=== PATIENT | female | born 1995 | race Caucasian/White ===

== ENCOUNTER → 2025-01-08 | Outpatient (CLI) | payer OTHER, SELFPAY ==
--- OUTSIDE RECORDS SUMMARY | 2025-01-08 16:30 | XMS RPT_ITS | CCD ---
Author Organization [facility] CliniSyal Care Team Providers Care Director Of Compliance Name Role Phone TAO LOZANOARA L Unavailable Unavailable REFERRED, SELF Unavailable Unavailable LOZANO, CHERIE L Unavailable Unavailable CORONA, STACY Unavailable Unavailable REFERRED, SELF Unavailable Unavailable MARTA, CHERIE L Unavailable Unavailable Karissa Resendiz Attending Unavailable Karissa Resendiz Admitting Unavailable Tourrafy, Carlo Primary Care Unavailabl e Tourlas, Carlo Attending Unavailabl e Tourlas, Carlo Primary Care Unavailabl e Valentino Stanley Admitting Unavailable Valentino Stanley Attending Unavailable Tourlas, Carlo Primary Care Unavailabl e Tourlas, Carlo Unavailable [phone] João Aldrich Unavailable Unavailable Andre, Anne Unavailable Unavailable Hernando Snider Attending Unavailable João Wolf Primary Care Provider JOÃO ALDRICH Primary Care Unavailable TRAM HERRERA Attending Unavailable NONE, NONE Primary Care Unavailable DR STEVE RUSSELL DO Consulting Unavailab kishore RUSSELL DO, DR~[id number] STEVE Castañeda Admitting Unavailable SARAH BETH JACKSON DR~[id number] STEVE Castañeda Attending Unavailable DR STEVE RUSSELL DO Consulting Unavailab le NONE, NONE Consulting Unavailable NONE, NONE Consulting Unavailable STACY PATEL DO Consulting Unavailable AMANDA JACKSON~[id number], AMANDA Saez Admitting Unavailable AMANDA JACKSON~[id number], AMANDA Saez Attending Unavailable KIERRA PERRY~[id number], KIERRA Benitez Prima ry Care Unavailable STACY PATEL DO Consulting Unavailable DESMOND LOZADA APRN Consulting Unavail able DESMOND LOZADA APRN Consulting Unavail able BREONNA FAJARDO DR~[id number] VALENTINO Attending Unavailable NONE, NONE Primary Care Unavailable STACY GUIDRY MD Consulting Unavailable BREONNA FAJARDO DR~[id number] VALENTINO Admitting Unavailable STACY GUIDRY MD Consulting Unavailable NONE, NONE Consulting Unavailable NONE, NONE Consulting Unavailable BREONNA FAJARDO DR~[id number] VALENTINO Consulting Unavailable DR VALENTINO RAVI MD Consulting Unavaila ble BREONNA FAJARDO DR~[id number] VALENTINO Admitting Unavailable BREONNA FAJARDO DR~[id number] VALENTINO Attending Unavailable NONE, NONE Primary Care Unavailable NONE, NONE Consulting Unavailable NONE, NONE Consulting Unavailable BREONNA FAJARDO DR~[id number] VALENTINO Consulting Unavailable DR VALENTINO RAVI MD Consulting Unavaila ble Allergies Allergy Classification Reported Allergen(s) Allergy Type Date of Onset Reaction(s) Facility (1 source) Azithromycin Drug Allergy [facility] Repository Medications Current Medications Medication Drug Class(es) Dates Sig (Normalized) Sig (Original) azithromycin 250 mg oral tablet (1 source) Macrolide Antimicrobial Start: 08-03-2020 End: 08-07-2020 Zithromax Z-Austin 250 mg oral tablet ; 2 tab(s) by mouth at once on day 1, then 1 tablet once a day on days 2-5 Quantity: 6 Refills: 0 Ordered: 03-Aug-2020 Anne Powell Start: 03-Aug-2020 End: 07-Aug-2020 Generic Substitution Allowed Comments: Do not take dairy products, antacids, or iron preparations within one hour of this medication.Finish all this medication unless otherwise directed by prescriber. Comment on above: Do not take dairy pr oducts, antacids, or iron preparations within one hour of this medication.Finish all this medication unless otherwise directed by prescriber. escitalopram 10 mg oral tablet (1 source) Serotonin Reuptake Inhibitor take 1 tablet by mouth once daily escitalopram (Lexapro) 10 mg tablet Take 1 tablet (10 mg) by mouth once daily. 0 Active ketorolac tromethamine 10 mg oral tablet (2 sources) Nonsteroidal Anti-inflammatory Drug, Cyclooxygenase Inhibitor Start: 12-28-2022 End: 01-02-2023 take 1 tablet by mouth every six hours for pain ketorolac (Toradol) 10 mg tablet Indications: Odontalgia , Pain, dental Take 1 tablet (10 mg) by mouth every 6 hours if needed for moderate pain (4 - 6) for up to 5 days. 20 tablet 0 12/28/2022 01/02/2023 Active Start: 12-28-2022 End: 12-28-2022 ketorolac (Toradol) injectio n 15 mg metoprolol tartrate 25 mg oral tablet (1 source) beta-Adrenergic Milana take 1 tablet by mouth twice daily metoprolol tartrate 25 mg oral tablet ; 1 tab(s) orally 2 times a day Quantity: 0 Refills: 0 Ordered: 03-Aug-2020 Emily Luna Generic Substitution Allowed Completed/Discontinued Medications Medication Drug Class(es) Dates Sig (Normalized) Sig (Original) benzocaine 140 mg/ml / butamben 20 mg/ml / tetracaine 20 mg/ml mucosal spray (1 source) Mari Local Anesthetic, Standardized Chemical Allergen Start: 12-28-2022 End: 12-28-2022 butamben-tetracai ne-benzocaine (Cetacaine) spray 1 spray lidocaine hydrochloride 20 mg/ml mucous membrane topical solution (1 source) Antiarrhythmic, Amide Local Anesthetic Start: 12-28-2022 End: 12-28-2022 lidocaine (Xylocaine) 2 % mouth solution 1.25 mL Problems Active Problems Problem Classification Problem Date Documented Date Episodic/Chronic Acute bronchitis (1 source) Acute bronchitis, unspecified; Translations: [Acute bronchitis, unspecified] Onset: 05-14-2022 Episodic Administrative/social admission (3 sources) Encounter for examination for insurance purposes; Translations: [ENCOUNTER EXAM INSURANCE PURPOSES] Onset: 11-29-2024 Episodic Disorders of teeth and jaw (4 sources) Toothache; Translations: [Other specified disorders of teeth and supporting structures] Onset: 12-28-2022 12-28-2022 Episodic Immunizations and screening for infectious disease (1 source) Exposure to communicable disease; Translations: [Contact with or exposure to other viral diseases] 08-03-2020 Episodic Malaise and fatigue (2 sources) Fatigue; Translations: [Other malaise and fatigue] 08-03-2020 Episodic Menstrual disorders (2 sources) Dysmenorrhea, unspecified; Translations: [DYSMENORRHEA UNSPECIFIED] Onset: 12-18-2024 Chronic Other nutritional; endocrine; and metabolic disorders (1 source) Obesity, unspecified; Translations: [OBESITY UNSPECIFIED] Onset: 01-06-2024 Chronic Other upper respiratory disease (2 sources) Pain in throat 08-03-2020 Episodic Comment on above: SORE THROAT Other upper respiratory infections (4 sources) Acute upper respiratory infection; Translations: [Acute upper respiratory infections of unspecified site] 08-03-2020 Episodic Ovarian cyst (1 source) Unspecified ovarian cyst, left side; Translations: [UNSPECIFIED OVARIAN CYST LEFT SIDE] Onset: 12-22-2024 Episodic Unclassified (1 source) Exposure to mononucleosis syndrome 08-03-2020 Past or Other Problems Problem Classification Problem Date Documented Da te Episodic/Chronic Cardiac dysrhythmias (4 sources) Palpitations; Translations: [Tachycardia, unspecified] Onset: 01-02-2024 Episodic Results Test Name Value Interpretation Reference Range Facility THIN PREP with HPV REFLEX C U or SILon 12-10-2024 . . Normal [facility] Comment on above: Result Comment: Perf ormed at: [facility] Performed By: #### T PHRAS #### Performed for [place] [address] . Comment Normal [facility] Comment on above: Result Comment: The HPV DNA reflex criteria were not met with this specimen result therefore, no HPV testing was performed. . Performed at: [facility] Performed By: #### T PHRAS #### Performed for [place] [address] DIAGNOSIS: Comment Normal [facility] Comment on above: Result Comment: NEGA TIVE FOR INTRAEPITHELIAL LESION OR MALIGNANCY. Performed at: [facility] Performed By: #### T PHRAS #### Performed for [place] [address] Note: Comment Normal [facility] Comment on above: Result Comment: The Pap smear is a screening test designed to aid in the detection of premalignant and malignant conditions of the uterine cervix. It is not a diagnostic procedure and should not be used as the sole means of detecting cervical cancer. Both false-positive and false-negative reports do occur. . Performed at: [facility] Performed By: #### T PHRAS #### Performed for [place] [address] Performed by: Comment Normal [facility] Comment on above: Result Comment: Zeynep Daigle, Intertype Operator (ASCP) Performed at: [facility] Performed By: #### T PHRAS #### Performed for [place] [address] Specimen adequacy: Comment Normal [facility] Comment on above: Result Comment: Sati sfactory for evaluation. Endocervical and/or squamous metaplastic cells (endocervical component) are present. Performed at: [facility] Performed By: #### T PHRAS #### Performed for [place] [address] Test Methodology: Comment Normal [facility] Comment on above: Result Comment: This liquid based ThinPrep(R) pap test was screened with the use of an image guided system. Performed at: [facility] Performed By: #### T PHRAS #### Performed for [place] [address] CHLAM GONORRHEA and TRICH NA Aon 12-08-2024 Chlamydia by SKIP Negative Normal Negative [facility] Comment on above: Performed By: #### G CCHTR #### Performed for [place] [address] Gonococcus by SKIP Negative Normal Negative [facility] Comment on above: Performed By: #### G CCHTR #### Performed for [place] [address] Trich vag by SKIP Negative Normal Negative [facility] Comment on above: Performed By: #### G CCHTR #### Performed for [place] [address] [facility] A1Con 11-29-2024 Average glucose Estimated from glycated hemoglobin (Bld) [Mass/Vol] 97 mg/dL Normal 68-125 [facility] Comment on above: Performed By: #### H FA1C #### [place] [address] [address] - Steve COHEN [id number] HA1C A1C INTERPRETATION % A1c (NGSP) Interpretation <5.7 Non-Diabetic Range 5.7 - 6.4 Prediabetic >6.5 Action Suggested The eAG (estimated average glucose) is an estimation of one?s average blood glucose level, calculated based on A1C test results, reported using the same units (mg/dL) seen on blood glucose meters. Normal [facility] Comment on above: Performed By: #### H FA1C #### [facility] [address] [place] [address] [address] [employer] Steve COHEN [id number] HbA1c (Bld) [Mass fraction] 5.0 %A1C Normal 4.2-6.3 [facility] Comment on above: Performed By: #### H FA1C #### [facility] [address] [place] [address] [address] [employer] [employer] Steve COHEN [id number] Lipid panel with direct LDLo n 11-29-2024 Cholesterol [Mass/Vol] 161 mg/dL Normal <=200 [facility] Comment on above: Performed By: #### 5 7698-3 #### [facility] [address] [place] [address] [address] [employer] Steve PEREZIA [id number] Cholesterol in HDL [Mass/Vol] 48 mg/dL Normal 40-59 [facility] Comment on above: Performed By: #### 5 7698-3 #### [facility] [address] [place] [address] [address] [place] - Steve PEREZIA [id number] Cholesterol in LDL [Mass/Vol] 96 mg/dL Normal 5-100 [facility] Comment on above: Performed By: #### 5 7698-3 #### [facility] [address] [place] [address] [address] [employer] Steve PEREZIA [id number] Cholesterol in LDL/Cholesterol in HDL [Mass ratio] 2.0 {ratio} Normal [facility] Comment on above: Performed By: #### 5 7698-3 #### [facility] [address] [place] [address] [address] - Steve PEREZIA [id number] Cholesterol.total/ Cholesterol in HDL [Mass ratio] 3.4 {ratio} Normal [facility] Comment on above: Performed By: #### 5 7698-3 #### [facility] [address] [place] [address] [address] - Steve COHEN [id number] HCHOL CHOLESTEROL INTERPRE TATION Desirable <200 Borderline High 200-239 High >240 Normal [facility] Comment on above: Performed By: #### 5 7698-3 #### [facility] [address] [place] [address] [address] - Steve COHEN [id number] HLDL LDL INTERPRETATION Desirable <100 Near Optimal 100-129 Borderline High 130-159 High 160-190 Very High >190 Normal [facility] Comment on above: Performed By: #### 5 7698-3 #### [facility] [address] [place] [address] [address] [employer] Steve COHEN [id number] HLIPID ATEROSCLEROSIS RISK FACTORS FOR LDL, HDL, AND CHOLESTEROL RISK FACTOR SEX LDL/HDL CHOL/HDL 1/2 Average M 1.00 3.43 F 1.47 3.27 Average M 3.55 4.97 F 3.22 4.44 2X Average M 6.25 9.55 F 5.03 7.05 3X Average M 7.99 23.39 F 6.14 11.04 Normal [facility] Comment on above: Performed By: #### 5 7698-3 #### [facility] [address] [place] [address] [address] [employer] Steve COHEN [id number] HTRIG TRIGLYCERIDES INTERPRETATION Normal <150 Borderline High 150-199 High 200-499 Very High >500 Normal [facility] Comment on above: Performed By: #### 5 7698-3 #### [facility] [address] [place] [address] [address] Steve COHEN [id number] Triglyceride [Mass/Vol] 82 mg/dL Normal <=150 [facility] Comment on above: Performed By: #### 5 7698-3 #### [facility] [address] [place], [place] [address] [address] - Stevedaryl Russell VICKI [id number] Urgent Care Visit Reporton 1 05-22-2021 Urgent Care Visit Report [facility] [address] [place] [address] [address] [place] [address] OFFICE VISIT Date of Service: 03/21/22 MR#: [id number] Acct: [id number] Name: HELENA BARAJAS Rep #: [id number] : 1995 Provider: JULIO CESAR Huitron Age/Sex: 26/F [place] [facility] Status: Signed Intake Vital Signs 03/21/22 12:11 Height 5 ft 5.25 in Weight: 180 lb BMI 29.7 BP 110/70 Blood Pressure Location Lt brachial Position Sitting Respiration 18 Pulse 97 Pulse Source Monitor Temp 98.6 F Temp Source Temporal Pulse Oximetry (%) 99 Oxygen Delivery Method room air Intake Visit Reasons: CONGESTED, COUGH/17 WKS Allergies No Known Allergies Allergy (Unverified 03/21/22 12:12) Medications acetaminophen 325 mg capsule (Tylenol) 325 mg PO ONCE PRN 03/21/22 [History Confirmed 03/21/22] azithromycin 250 mg tablet See Rx Instructions PO .COMPLEX #6 tabs 03/21/22 [Rx Confirmed 03/21/22] guaifenesin 100 mg/5 mL oral liquid 200 mg PO Q4H PRN 03/21/22 [History Confirmed 03/21/22] pseudoephedrine HCl 30 mg tablet (Sudafed) 30 mg PO ONCE 03/21/22 [History Confirmed 03/21/22] PFSH Surgical History (Updated 03/21/22 @ 12:14 by Mehnaz Rousseau) H/O removal of cyst HPI HPI Details: HELENA BARAJAS, is a 26 F who presents to the office today for complaint of cough and congestion for the past 6 to 7 days. Patient denies hemoptysis, shortness of breath or difficulty breathing. No fever, chills, sweats. No nausea, vomiting, diarrhea. No loss of taste or smell. No other associated symptoms or alleviating/aggravating factors. ROS Const Constitutional: No other (6 system ROS completed with pertinent findings in HPI otherwise normal.) Exam Const General: cooperative and well developed HENMT Head: normal to inspection and atraumatic Ears: hearing grossly normal bilaterally Nose: nasal discharge clear Face and sinus: normal facial exam Mouth: oral mucosae normal Throat: abnormal tonsil bilaterally hypertrophy 1+ Resp Effort Inspection: normal respiratory effort and no audible wheezes Auscultation: Bilateral: Clear to Auscultation Cardio Palpation: normal PMI Rate: regular rate Rhythm: regular rhythm Neuro General: patient alert and CN's II-XI intact bilaterally Psych Appearance: grossly normal Mental Status: mental status grossly normal Coding Level of Care Code Off vis,new,level 3 Diagnoses Acute bronchitis J20.9 Assessment and Plan Assessment and Plan (1) Acute bronchitis: Status: Acute Plan: Azithromycin as prescribed today. Encouraged to get plenty of rest, drink lots of clear liquids, and use Tylenol or Ibuprofen (unless contraindicated) for fever and comfort. Patient also educated on other symptomatic management techniques. To be seen in 7-10 days if no improvement; sooner if worsening of symptoms. Patient advised of potential red flags and when appropriate to report to the ED. Patient verbalized understanding and agreement with all the above. Medications: New azithromycin take 500 mg today (day 1), then 250 mg for 4 days (days 2-5) PO 6 tabs 0RF 03/21/22 1404 Date Hernando Knowles Signature: Date (if applicable) CC: Normal [facility] GROUP A STREP,PCRon 08-05-19 21 GROUP A STREP,PCR Not detected Normal Not Detected [facility] Comment on above: Result Comment: This test and its performance have been Validated by [facility] using analyte specific reagents (ASR). It has not been cleared or approved by the U.S. Food and Drug Administration. The FDA has determined that such clearance or approval is not necessary. Performed By: #### G APC1 #### [facility] [address] [place] [address] GROUP A STREP,PCRon 08-04-19 21 Lab Specimen Source Throat Normal [facility] Comment on above: Performed By: #### G APC1 #### [facility] [address] [place] [address] Provider Note - ED v2on 07-23 Provider Note - ED v2 Provider Note - ED v2: Chart Review HISTORY OF PRESENTING ILLNESS HELENA is a 24 year old Female and was seen by me at 03-Aug-2020 15:41. The historian is the patient. Triage Information: Most recent Vital Sign Value Date PAST MEDICAL HISTORY ATTESTATION: I have reviewed and confirmed nurse's/medic's notes for patient's medications, allergies, and medical, surgical, family and social history ALLERGIES/INTOLERANCES: No Known Allergies HEALTH HISTORY: Medical History Name:Tachycardia Code:R00.0 No other known health issues. Family history: no pertinent history. Social history: No tobacco use. OUTPATIENT MEDICATIONS: Home Medications Review Status for Reconciliation: Complete Med Status: Patient Currently Takes Medications Drug Name: metoprolol tartrate 25 mg oral tablet Instructions: 1 tab(s) orally 2 times a day Drug Name: Zithromax Z-Austin 250 mg oral tablet Instructions: 2 tab(s) by mouth at once on day 1, then 1 tablet once a day on days 2-5 SIGNIFICANT EVENTS: No known significant events or known past surgical history. CUSTOMER SUPPORT SPECIALIST: Is : no Is : no RESULTS/VITAL SIGNS VITAL SIGNS: T PRBP SpO2O2(LPM) %FiO2 Method 03-Aug-2020 15:36:[id number] 100 MEDICAL DECISION MAKING/ED COURSE MDM/ED COURSE: This note was generated with voice recognition software and may contain errors including spelling, grammar, syntax, and misrecognization of what was dictated CHIEF COMPLAINT sore throat, fatigue, exposure to mono HISTORY OF PRESENT ILLNESS Patient presents today with complaints of sore throat and fatigue that started on Saturday after she came home from the dentist. Reports she initially thought the throat irritation was r/t debris from the dental work she had done, but last night, symptoms progressed - "felt like razor blades" - reports it was difficult to even swallow food d/t the discomfort. She also has nasal congestion with "neon"-colored mucus/drainage from her R nare, fullness in bilat ears, and some PND that causes a mild cough that is not really bothersome. Denies any fever/chills, body aches, sinus tenderness, ear pain, headaches, abdominal pain, chest pain, wheezing/shortness of breath, urinary symptoms, nausea/vomiting, and diarrhea. Appetite is "okay" and is able to drink fluids without difficulty (warm fluids actually seem to be helpful); denies any loss of sense of taste or smell. Reports feels like her symptoms are getting worse. Has been taking Dayquil/Nyquil and doing salt water gargles without much relief; has not tried any other shjx-sjb-bcaajod medications or home remedies for symptom management. Reports a 4 year old lives in her home and he recently tested negative for Strep but positive for [place] - she is concerned about both strep and mono. Denies any other known ill contacts. Has not received the COVID-19 vaccine or a flu vaccine. No known health issues. REVIEW OF SYSTEMS 10 systems reviewed negative with exception of history of present illness listed above PHYSICAL EXAMINATION General: Mildly ill-appearing, well nourished female; alert and oriented; in no acute distress. Sitting comfortably on exam table. Non-dyspneic. Eyes: Pupils equal, round and reactive to light. No conjunctival erythema; no scleral icterus. HENT: No frontal or maxillary sinus tenderness; mild audible nasal congestion. Airway patent, TMs and ear canals clear bilaterally. Nasal mucosa mildly injected and edematous. Oral mucosa moist. Posterior pharynx reddened and tonsils 2+ but without vesicles or oropharyngeal exudate. Uvula is midline. Neck: Supple. Very tender, mobile, large anterior cervical lymphadenopathy bilat. Respiratory: Respirations easy and unlabored, Breath sounds equal. Lungs are clear to auscultation; no wheezes, rhonchi, or rales. Loose, mild, non-productive cough noted only upon request. Non-dyspneic with ambulation. Cardiovascular: Normal rate, Regular rhythm. No m/r/g. Gastrointestinal: Soft, non-tender, non-distended. Bowel sounds normoactive. Musculoskeletal: Grossly normal; appropriate for age. Integumentary: [place], warm, dry, and Intact. No rashes or skin discoloration appreciated. Good skin turgor Neurologic: Alert and oriented, no gross deficits. Cognition and Speech: Oriented, Speech clear and coherent. Psychiatric: Cooperative, Appropriate mood & affect. MEDICAL DECISION MAKING Course: Worsening; stable. Impression/Plan: I have reviewed the COVID-19 algorithm, and counseled pt on COVID-19 current recommendations. Recommended testing, but pt declined despite discussion re: risks/benefits. Urged contagious precautions. Symptoms consistent with viral URI/pharyngitis, but per pt's request, d/t severity of symptoms, Strep swab obtained today. Offered testing for [place]ko (discussed pro's/con's) - pt stated would prefer to defer today. No (more content not included)... Normal [facility] Clinical Summary-RTFon 08-02 Clinical Summary-RTF Clinical Summary Patient Details for HELENA MURRAY Preferred Name Female Sex [id number] [facility] [address], [facility] Address [place] 1995 Born White Race Non- or Ethnicity Today's Appointment Carlo Landers Provider 03 Aug 2019 04:40 PM Appointment Treatment Plans Follow-ups/Referrals: ? Follow-up visit in 12 months; To Be Done: 03 Aug 2019 Interventions Labs/Procedure/Imaging: ? IO Vision Screening; Done: 03 Aug 2019 ? Tobacco Use Screening; Done: 03 Aug 2019 Reason for Visit Health Issues Reviewed : Normal Touchworks HM 19-49 Yearson 08-03-2019 19-49 Years Diagnoses/Problems Assessed Annual physical exam (V70.0) (Z00.00) Immunization due (V05.9) (Z23) Orders Annual physical exam Follow-up visit in 12 months Outpatient Follow-up Status: Hold For - Scheduling Requested for: 03Aug2019 Ordered Stat;For: Annual physical exam; Ordered By: Carlo Landers Performed: Due: [id number] Health Maintenance IO Vision Screening; Status:Complete; Done: 03Aug2019 04:53PM Performed:In Office; Due:[id number];Ordered; For:Health Maintenance; Ordered By:Carlo Landers; SocHx: Non-smoker Tobacco Use Screening; Status:Complete; Done: 03Aug2019 Perform:Not Applicable;Ordered; For:SocHx: Non-smoker; Ordered By:Carlo Landers; Provider Impressions No acute problems or concerns Pt doing well Physical exam wnl Reviewed IMPACT IMM - due for Tdap - this was given to pt today Counseled pt on warning signs of when to present back to clinic earlier and/or ER Filled out physical form for pt Chief Complaint Pt here for annual exam History of Present IllnessPt here for annual exam She denies any acute problems or concerns She states to be doing well She is currently in the process of finishing up [employer] She uses PRN metoprolol for her tachycardia - last use was over a yr ago She follows w/ [facility] for her annual gyne exam Review of Systems A complete ROS is neg, except as stated above. Active Problems Problems Acne (706.1) (L70.9) Tachycardia (785.0) (R00.0) Surgical History Problems History of Cyst excision R hand - non-cancerous Family History Mother No pertinent family history Father No pertinent family history Sibling No pertinent family history Social History Problems No recent domestic travel No recent foreign travel Non-smoker (V49.89) (Z78.9) Occasional alcohol use Allergies NoKnown No Known Allergies Recorded By: Ria Villegas; 08/03/2019 4:50:44 PM Current Meds Medication NameInstruction Isibloom 0.15-30 MG-MCG Oral Tablet Metoprolol Tartrate 25 MG Oral TabletTAKE 1 TABLET Twice daily PRN TACHYCARDIA Vitals Vital Signs Recorded: 03Aug2019 04:43PM [id number] F Heart Rate80 [id number] Aokmcfdr541 Smqbtpqyn71 Height5 ft 5.5 in Usqpdd130 lb 11.2 oz BMI Mtzfdqspst31.5 BSA Calculated1.82 Physical Exam Documented vital signs: Reviewed. General: No acute distress. Eye: Pupils are equal, round and reactive to light, Extraocular movements are intact, Normal conjunctiva. HENT: Normocephalic, Oral mucosa is moist, No pharyngeal erythema. Neck: Supple, Non-tender, No lymphadenopathy. Respiratory: Lungs are clear to auscultation, Respirations are non-labored, Breath sounds are equal, Symmetrical chest wall expansion. Cardiovascular: Normal rate, Regular rhythm, No murmur. Gastrointestinal: Soft, Non-tender, Non-distended, Normal bowel sounds. Musculoskeletal: Normal range of motion. Normal strength. Normal gait. Integumentary: Warm, Dry, [place], No rash. Neurologic: Alert, Oriented, No focal deficits. Cognition and Speech: Speech clear and coherent. Psychiatric: Cooperative, Appropriate mood AND affect. Results/Data IO Vision [id number] 04:53PMCarlo Landers Test NameResultFlagReference Right Eye Lroebfjhlfs53/20 Left Eye Chxdsbuyzjm14/25 Signatures Electronically signed by : Carlo Landers, ; Aug 03 2019 5:19PM EST (Author) Normal Touchwork s Progress Noteon 02-08-2017 Convention Services Director Authentication Interface Message Text Patient ID: Helena Murray is a 21 y.o. female. Her chief complaint(s)include: Pharyngitis (back pain).Assessment:1. Sore throat2. Acute pharyngitis, unspecified etiologyPlan:Helena was seen today for pharyngitis.Diagnoses and all orders for this visit:Sore throat- POCT rapid strep A antigen- Strep culture- acetaminophen (TYLENOL) 500 MG tablet; Take 1-2 tabs every 6 hrs as neededfor pain or fever. Take no more than 5 doses in a 24 hour periodAcute pharyngitis, unspecified etiologyReturn for Well Visit and as needed.For headache continue ibuprofen and alternate with Tylenol. Increase fluidintake and try Caffeine (usually has tea but hasn't had in few day), also warmbath or heating pad to neck.Subjective:She is unaccompanied. PharyngitisThe onset has been acute. The duration has been 2 days. The course isunchanging.The patient's symptoms have included chills, a fever (2 days ago), headaches(back of head/neck), congestion, rhinorrhea and muscle aches (arms, legs, middleof back). The patient's symptoms have included no decreased appetite, nodecreased fluid intake, no abdominal pain, no nausea, no diarrhea and no rash.(Sore throat).The patient has been exposed to sick contacts with similar symptoms(Sister esther). The patient's home management has included ibuprofen (flu/cold med).Primary Care Review of SystemsObjective:Physical ExamNursing note reviewed.Constitutional: She appears well. She is active. No distress.HENT:Head: Atraumatic.Right Ear: Tympanic membrane normal.Left Ear: Tympanic membrane normal.Nose: Nasal discharge present.Mouth/Throat: Throat is red. Mucous membranes are moist. Tonsillar exudate(right tonsil).Tonsils +2Eyes: Conjunctivae are normal.Neck: Neck adenopathy (mild bilateral anterior cervical) present.Cardiovascular: Normal rate and regular rhythm.No murmur heard.Pulmonary/Chest: Breath sounds normal. There is normal air entry. She has nowheezes.Abdominal: Soft. Bowel sounds are normal. There is no hepatosplenomegaly. Thereis no tenderness.Neurological: She is alert.Skin: No rash noted.Vitals reviewed: Blood pressure 118/55, pulse 76, temperature 36.7 C (98.1 F),temperature source Temporal, weight 66.3 kg, last menstrual period 02/08/2017. Normal [facility] Strep Cultureon 02-08-2017 Strep Culture Is this specimen chuy ng sent to an external lab?->NoStrep Culture: Beta Streptococcus not Group A Source: THRSW Collected: 02/08/17 10:53 Site: Throat swab Received : 02/08/17 19:35Strep Culture FINAL 02/10/17 10:04 Beta Streptococcus not Group A Normal [facility] Comment on above: Performed By: #### S TRE ####[address] [phone] C-Reactive Proteinon 017 C reactive protein (CRP) mg/L Normal 0.0-1.0 [facility] Comment on above: Order Comment: Is th is specimen being sent to an external lab?->No Result Comment: CRP determinations in neonates should be interpreted withcaution. CRP may be elevated in circumstances not associatedwith inflammation (e.g. difficult delivery, pneumothorax). Inpremature neonates CRP levels may not rise to abnormal levelseven if sepsis is present; some speculate that immature liverfunction decreases the ability to generate a CRP response. Performed By: #### C RP ####[address] [phone] Complete Blood Counton 12-26 Differential Complete Manual Normal [facility] Comment on above: Order Comment: Is th is specimen being sent to an external lab?->No Performed By: #### C BC ####[address] [phone] Erythrocyte distribution width Auto Ratio (RBC) 11.0 % Normal 0.0-14.4 [facility] Comment on above: Order Comment: Is th is specimen being sent to an external lab?->No Performed By: #### C BC ####[address] [phone] Erythrocytes (RBC) 4.21 10E12/L Normal 4.00-4.90 [facility] Comment on above: Order Comment: Is th is specimen being sent to an external lab?->No Performed By: #### C BC ####[address] [phone] Hematocrit (HCT) 40.7 % Normal 36.0-44.0 [facility] Comment on above: Order Comment: Is th is specimen being sent to an external lab?->No Performed By: #### C BC ####[address] [phone] Hemoglobin mass conc (Bld) 13.8 g/dL Normal 12.0-15.0 [facility] Comment on above: Order Comment: Is th is specimen being sent to an external lab?->No Performed By: #### C BC ####[address] [phone] MCH 32.8 pg Normal 26.0-34.0 [facility] Comment on above: Order Comment: Is th is specimen being sent to an external lab?->No Performed By: #### C BC ####[address] [phone] [facility] mass conc (RBC) 33.9 % Normal 31.0-37.0 [facility] Comment on above: Order Comment: Is th is specimen being sent to an external lab?->No Performed By: #### C BC ####[address] [phone] MCV 96.7 fL Normal 80.0-100.0 [facility] Comment on above: Order Comment: Is th is specimen being sent to an external lab?->No Performed By: #### C BC ####[address] [phone] Platelet mean volume (PMV) 9.0 fL Normal [facility] Comment on above: Order Comment: Is th is specimen being sent to an external lab?->No Result Comment: MPV is plateletrange and agedependent Performed By: #### C BC ####[address] [phone] Platelets 193 10*3/uL Normal 150-450 [facility] Comment on above: Order Comment: Is th is specimen being sent to an external lab?->No Performed By: #### C BC ####[address] [phone] WBC (Leukocytes) 11.4 10*3/uL High 4.5-11.0 [facility] Comment on above: Order Comment: Is th is specimen being sent to an external lab?->No Performed By: #### C BC ####[address] [phone] EBV (VCA) IgG Abon 7 EBV (VCA) IgG Ab See Below Normal [facility] Comment on above: Order Comment: Is th is specimen being sent to an external lab?->No Result Comment: >5.8 POSITIVEReference Range:Negative: <0.90 ISREquivocal: 0.90-1.09 ISRPositive: >1.09 ISRInterpretation:Results are best interpreted in conjunction with EBV IgMantibody results.-Results suggest prior exposure to April-Lozoya Virus.However, a second serum specimen should be tested in 10-14days if clinically indicated.In most populations, at least 90% of the adult populationwill have been infected with EBV sometime in the past andtherefore, will be positive for anti-VCA/IgG and anti-EBNA. Antibodies to EBNA develop 6-8 weeks after primaryinfection and remain present for life. Presence of VCA/IgM antibodies indicates recent primary infection withEBV. Performed By: #### E BVIG ####[address] [phone] EBV (VCA) IgM Abon 7 EBV (VCA) IgM Ab 0.700665 ISR Normal [facility] Comment on above: Order Comment: Is th is specimen being sent to an external lab?->No Result Comment: NEGA TIVEReference Range:Negative: <0.90 ISREquivocal: 0.90-1.09 ISRPositive: >1.09 ISRInterpretation:Results are best interpreted in conjunction with EBV IgGantibody results.-Results do not suggest current recent infection withEpstein-Lozoya Virus. However, a second serum specimen shouldbe tested in 10-14 days if clinically indicated.In most populations, at least 90% of the adult populationwill have been infected with EBV sometime in the past andtherefore, will be positive for anti-VCA/IgG and anti-EBNA. Antibodies to EBNA develop 6-8 weeks after primaryinfection and remain present for life. Presence of VCA/IgM antibodies indicates recent primary infection withEBV. Performed By: #### E BVIM ####[address] [phone] ESRon 10-04-2017 ESR Sed Rate 11 mm Normal [facility] Comment on above: Order Comment: Is th is specimen being sent to an external lab?->No Performed By: #### S RATE ####[address] [phone] Manual Differentialon 2016 Cell Morphology Normal Normal [facility] Comment on above: Order Comment: Is th is specimen being sent to an external lab?->No Performed By: #### S CAN ####[address] [phone] Lymphocytes/100 leukocytes 10 % Low 24-44 [facility] Comment on above: Order Comment: Is th is specimen being sent to an external lab?->No Performed By: #### S CAN ####[address] [phone] Metamyelocytes 0 % Normal 0-0 [facility] Comment on above: Order Comment: Is th is specimen being sent to an external lab?->No Performed By: #### S CAN ####[address] [phone] Metamyelocytes/100 leukocytes 0 % Normal 0-0 [facility] Comment on above: Order Comment: Is th is specimen being sent to an external lab?->No Performed By: #### S CAN ####[address] [phone] Monocytes/100 leukocytes 2 % Low 3-6 [facility] Comment on above: Order Comment: Is th is specimen being sent to an external lab?->No Performed By: #### S CAN ####[address] [phone] Neutrophils 10.0 Normal [facility] Comment on above: Order Comment: Is th is specimen being sent to an external lab?->No Performed By: #### S CAN ####[address] [phone] Neutrophils band/100 leukocytes 4 % Low 5-11 [facility] Comment on above: Order Comment: Is th is specimen being sent to an external lab?->No Performed By: #### S CAN ####[address] [phone] Promyelocytes 0 % Normal 0-0 [facility] Comment on above: Order Comment: Is th is specimen being sent to an external lab?->No Performed By: #### S CAN ####[address] [phone] Segmented Neutrophils/100 leukocytes 84 % High 35-66 [facility] Comment on above: Order Comment: Is th is specimen being sent to an external lab?->No Performed By: #### S CAN ####[address] [phone] ESRon 12-25-2016 Interpretation ----- Normal [facility] Comment on above: Order Comment: Is th is specimen being sent to an external lab?->No Result Comment: Male FemaleChild 0-13 Child 0-13Adult 0- 9 Adult 0-20 Performed By: #### S RATE ####[address] [phone] Progress Noteon 12-25-2016 Convention Services Director Authentication Interface Message Text Patient ID: Helena Murray is a 21 y.o. female. Her chief complaint(s)include: Pharyngitis.Assessment:1. Exudative tonsillitis2. Sore throat3. Acute pharyngitis, unspecified etiologyPlan:Helena was seen today for pharyngitis.Diagnoses and all orders for this visit:Exudative tonsillitis- Strep culture- Cancel: [place] screen- Venipuncture- Complete Blood Count with Diff- April-Lozoya virus VCA, IgM- April-Lozoya virus VCA, IgG- ESR (Clinic Collect)- C-reactive protein (Clinic Collect)- POCT mononucleosis antibodies (Monospot)Sore throat- POCT rapid strep A antigenAcute pharyngitis, unspecified etiology- Maalox:Benadryl:Lidocaine Viscous COMPOUND; Swish and spit 5 mL every 4hours as needed for PainReturn for Well Visit and as needed.Subjective:The patient's reason for visit is Sore throat. She is accompanied by hermother.No briquette molder was used.PharyngitisThe onset has been acute. The duration has been 3 days. The pattern ispersistent. The course is worsening (severe since yesterday).The patient's symptoms have included headaches (mild), swollen lymph nodes,cough (mild) and vomiting (once this morning). The patient's symptoms haveincluded no fever, no eye discharge, no eye redness, no ear pain, no congestion,no rhinorrhea and no diarrhea.The patient has been exposed to no sick contacts. The patient's home managementhas included ibuprofen.Primary Care Review of SystemsObjective:Physical ExamConstitutional: She appears well. She is active. No distress.HENT:Head: Atraumatic.Right Ear: Tympanic membrane normal.Left Ear: Tympanic membrane normal.Mouth/Throat: Mucous membranes are moist. Pharynx erythema present. Tonsillarexudate (thick covering both tonsils).Eyes: Conjunctivae are normal.Cardiovascular: Normal rate and regular rhythm.No murmur heard.Pulmonary/Chest: Breath sounds normal. There is normal air entry.Lymphadenopathy: Anterior cervical adenopathy (0.5-1.5 cm) present.Neurological: She is alert.Vitals reviewed: Blood pressure 109/50, pulse 89, temperature 36.4 C (97.6 F),temperature source Temporal, weight 67.5 kg, last menstrual period 12/10/2016.Recent Results (from the past 24 hour(s))POCT rapid strep A antigen Collection Time: 12/25/16 10:35 AMResult Value Ref Range Strep A Antigen None Detected None DetectedPOCT mononucleosis antibodies (Monospot) Collection Time: 12/25/16 11:07 AMResult Value Ref Range Monospot (Heterophile Antobodies) Negative Negative Normal [facility] Strep Cultureon 12-25-2016 Strep Culture Is this specimen chuy ng sent to an external lab?->NoStrep Culture: Beta Streptococcus not Group A Source: THRSW Collected: 12/25/16 11:00 Site: Throat swab Received : 12/25/16 21:22Strep Culture FINAL 12/28/16 09:43 Beta Streptococcus not Group A Normal [facility] Comment on above: Performed By: #### S TREP ####[address] [phone] Vital Signs Date Time Vital Sign Value Performing Clinician Faci lity 12-28-2022 01:19-0400 Diastolic blood pressure 83 mm[Hg] Tram Herrera DO Work Phone: [phone] [place] [address] 12-28-2022 01:19-0400 Heart rate 73 /min Tram Herrera DO Work Phone: [phone] [place] [address] 12-28-2022 01:19-0400 Respiratory rate 16 /min Tram Herrera DO Work Phone: [phone] [address] 12-28-2022 01:19-0400 SaO2% (BldA) [Mass fraction] 98 % Tram Herrera DO Work Phone: [phone] [place] [address] 12-28-2022 01:19-0400 Systolic blood pressure 131 mm[Hg] Tram Herrera DO Work Phone: [phone] [place] [address] 12-27-2022 23:59-0400 Body height 165.1 cm Tram Herrera DO Work Phone: [phone] [place] [address] 12-27-2022 23:59-0400 Body mass index (BMI) [Ratio] 32.62 kg/m2 Tram Herrera DO Work Phone: [phone] [place] [address] 12-27-2022 23:59-0400 Body temperature 97.3 [degF] Tram Herrera DO Work Phone: [phone] [place] [address] 12-27-2022 23:59-0400 Body weight 88.91 kg Tram Herrera DO Work Phone: [phone] [place] [address] 08-03-2020 17:36-0400 Body height 165.1 cm Carlo Tourlas Other Phone: [facility] 08-03-2020 17:36-0400 Body temperature 97.88 [degF] Carlo Tourlas Other Phone: [facility] 08-03-2020 17:36-0400 Diastolic blood pressure 72 mm[Hg] Carlo Tourlas Other Phone: [facility] 08-03-2020 17:36-0400 Heart rate 97 /min Carlo Tourlas Other Phone: [facility] 08-03-2020 17:36-0400 Respiratory rate 16 /min Carlo Tourlas Other Phone: [facility] 08-03-2020 17:36-0400 SaO2% (BldA) [Mass fraction] 100 % Carlo Tourlas Other Phone: [facility] 08-03-2020 17:36-0400 Systolic blood pressure 113 mm[Hg] Carlo Tourlas Other Phone: [facility] Encounters Encounter Date Encounter Type Care Provider Facility Start: 12-18-2024 End: 12-18-2024 ambulatory [id number] RAVI MD Facility:[facility] Start: 12-08-2024 Encounter for gynecological examination (general) (routine) without abnormal findings [id number] RAVI MD [facility] Start: 12-04-2024 End: 12-04-2024 ambulatory [id number] RAVI MD Facility:[facility] Start: 12-04-2024 End: 12-04-2024 Encounter for gynecological examination (general) (routine) without abnormal findings [id number] RAVI MD Facility:[facility] Start: 11-29-2024 End: 11-29-2024 ambulatory NONE NONE Facility:[facility] Start: 01-02-2024 End: 01-02-2024 ambulatory STACY PATEL DO Facility:[facility] Start: 12-28-2022 End: 12-28-2022 Emergency department patient visit JOÃO ALDRICH [facility] Start: 12-27-2022 End: 12-28-2022 Emergency department patient visit Tram Herrera DO Work Phone: [facility] Comment on above: Odontalgia (Primary Dx); Pain, dental Start: 03-21-2022 End: 03-21-2022 ambulatory Hernando HARRELL [place] [place]: 12-27-2021 ambulatory Facility:[facility] Start: 08-03-2020 End: 08-03-2020 Emergency department patient visit Anne Powell [facility] Start: 06-07-2018 End: 06-07-2018 Patient encounter procedure Valentino Stanley Facility:[facility] Start: 01-06-2018 End: 01-07-2018 Patient encounter procedure Karissa Resendiz Facility:[facility] Start: 02-08-2017 End: 02-08-2017 Ambulatory [facility] Start: 12-25-2016 End: 12-25-2016 Ambulatory CHERIE L [facility] Procedures Date Procedure Procedure Detail Performing Clinician Start: 02-25-2020 Follow-up visit Plan of Treatment Date Care Activity Detail Author Start: 2046 Zoster Vaccines (1 of 2) Zoste r Vaccines (1 of 2) [facility] Start: 11-17-2029 DTaP/Tdap/Td Vaccine s (9 - Td or Tdap) DTaP/Tdap/Td Vaccines (9 - Td or Tdap) [facility] Start: 11-23-2022 Influenza vaccination Influenza Vacc ine (#1) [facility] Start: 2017 Screening for malign ant neoplasm of cervix [facility] Start: 2014 Hepatitis C screening Hepatitis C Sc [facility] Start: 11-19-2007 HPV Vaccines (1 - 2- dose series) HPV Vaccines (1 - 2-dose series) [facility] Start: 05-21-1997 COVID-19 Vaccine (#1) COVID-19 Vacci ne (#1) [facility] Start: 1996 HIV screening HIV Screening [facility] Start: 1996 Lipid panel Lipid Panel [facility] Start: 1996 Yearly Adult Physical Yearly Adult P hysical [facility] Payers Date Payer Category Payer Unknown [id number] 2018 Unknown 2018 Private Health Insurance 1996 Unknown [id number] 2.16.84 [id number] 1996 Unknown [id number] 2.16.84 [id number] 1996 Unknown [id number] 2.16.84 [id number] 1996 Unknown [id number] 1996 Unknown [id number] 2.16.8 [id number] 1996 Unknown [id number] 2.16.8 [id number] 1996 Unknown [id number] 2.16.8 [id number] 1959 Self-pay Private Health Insurance [id number] Unknown [id number] 2.16.8 [id number] Social History Date Type Detail Facility [facility] Tobacco smoking consumption unknown [facility] Start: 12-28-2022 Tobacco smoking status NHIS Never smoked tobacco [facility] Work Phone: Start: 12-28-2022 Tobacco use and exposure Smokeless tobacco non-user [facility] Work Phone: Start: 12-28-2022 Alcohol intake Current drinke r of alcohol (finding) [facility] Work Phone: Start: 12-28-2022 Alcohol Comment occasionally [facility] Work Phone: Start: 1995 Sex Assigned At Not on file U [facility] Work Phone: Gender identity Not on file [facility] Start: 12-18-2022 End: 12-28-2022 Exposure to SARS-CoV-2 (event) Not sure [facility] Work Phone: Clinical Note 12-21-2024 Note Date & Type Note Facility 12-21-2024 Note PROCEDURE: ULTRASOUN D PELVIS WITH TRANSVAGINAL VIEWS, 12/18/2024 8:25 AM EDT CLINICAL INDICATIONS: Dysmenorrhea, pain with ovulation symptoms for a few months. 1, para 1. LMP 11/23/2024 COMPARISON: CT abdomen and pelvis 08/29/2023. TECHNIQUE: Transabdominal, transvaginal pelvic sonogram, mallory scale color and spectral assessment. FINDINGS: Uterus: 9.4 x 4.3 x 6.3 cm. Endometrial echo complex 0.7 cm. Uterus retroverted. Arcuate uterine morphology is seen. Normal uterine sonographic morphology. Focal abnormality is not demonstrated. Mild pelvic free fluid noted, cul-de-sac. Right ovary: 3.5 x 2.1 x 2.2 cm. Volume 8 mL. Subcentimeter follicles are seen. Left ovary: 3.6 x 2.9 x 2.8 cm. Volume 15 mL. 2.2 x 2.1 x 1.9 cm complex left ovarian cyst, crenulated margin peripheral vascularity seen. Corpus luteum favored. DUPLEX PELVIC VASCULATURE: There is intact flow within the ovarian tissue bilaterally by color-flow assessment. Arterial spectral tracing is identified from within. Right resistive index 0.55, left 0.47. IMPRESSION: 1. Retroverted uterus, arcuate morphology, no focal abnormality. 2. Normal right ovarian sonographic morphology. 3. 2.2 cm complex left ovarian cyst. Corpus luteum favored. 4. Mild cul-de-sac level pelvic free fluid. [facility] Discharge instructions 12-28-2022 Discharge Instructions Note Date & Type Note Facility 12-28-2022 Hospital Discharg e instructions Tram Herrera DO - 12/28/2022 1:15 AM EDT Follow-up with dentist in 1 to 2 days, if symptoms worsen return to ED. Take medication as prescribed. documented in this encounter [facility] Work Phone: Emergency department Note 12-27-2022 Tram Herrera DO - 12/27/2022 11:54 PM EDT Note Date & Type Note Facility 12-27-2022 Emergency department Note 27-year-old female who had a root canal done on the left lower molar presents with severe pain. Patient states this is the third time she has had work on that tooth. Patient was put on antibiotics and told to take Motrin and Tylenol which she states is not helping her pain. Patient denies a fever or chills. History provided by: Patient repossessor used: No Review of Systems Constitutional: Negative for chills and fever. HENT: Positive for dental problem. Negative for ear pain and sore throat. Eyes: Negative for pain and visual disturbance. Respiratory: Negative for cough and shortness of breath. Cardiovascular: Negative for chest pain and palpitations. Gastrointestinal: Negative for abdominal pain and vomiting. Genitourinary: Negative for dysuria and hematuria. Musculoskeletal: Negative for arthralgias and back pain. Skin: Negative for color change and rash. Neurological: Negative for seizures and syncope. All other systems reviewed and are negative. Physical Exam HENT: Head: Jaw: Tenderness present. Mouth/Throat: Mouth: Mucous membranes are moist. Comments: Tenderness along the left angle of the mandible. There appears to be filling in the second molar involving the left lower mandible. No significant inflammation of the gum or gingivitis. Labs Reviewed - No data to display No orders to display Procedures Diagnoses as of 12/28/22 0116 Odontalgia Pain, dental Medical Decision Making Patient did get improvement with treatment rendered here which included Toradol 15 mg IM. Patient will be discharged and instructed to follow-up with her dentist in 1 to 2 days if symptoms worsen return to ED. Problem List Items Addressed This Visit None Visit Diagnoses Odontalgia - Primary Relevant Medications ketorolac (Toradol) 10 mg tablet Pain, dental Relevant Medications ketorolac (Toradol) 10 mg tablet DO Tram Armas DO 12/28/22116 documented in this encounter [facility] [facility] Work Phone: Physician Emergency department Note 12-27-2022 Tram Herrera DO - 12/27/2022 11:54 PM EDT Note Date & Type Note Facility 12-27-2022 Physician Emergency department Note 27-year-old female who had a root canal done on the left lower molar presents with severe pain. Patient states this is the third time she has had work on that tooth. Patient was put on antibiotics and told to take Motrin and Tylenol which she states is not helping her pain. Patient denies a fever or chills. History provided by: Patient repossessor used: No Review of Systems Constitutional: Negative for chills and fever. HENT: Positive for dental problem. Negative for ear pain and sore throat. Eyes: Negative for pain and visual disturbance. Respiratory: Negative for cough and shortness of breath. Cardiovascular: Negative for chest pain and palpitations. Gastrointestinal: Negative for abdominal pain and vomiting. Genitourinary: Negative for dysuria and hematuria. Musculoskeletal: Negative for arthralgias and back pain. Skin: Negative for color change and rash. Neurological: Negative for seizures and syncope. All other systems reviewed and are negative. Physical Exam HENT: Head: Jaw: Tenderness present. Mouth/Throat: Mouth: Mucous membranes are moist. Comments: Tenderness along the left angle of the mandible. There appears to be filling in the second molar involving the left lower mandible. No significant inflammation of the gum or gingivitis. Labs Reviewed - No data to display No orders to display Procedures Diagnoses as of 12/28/22115 Odontalgia Pain, dental Medical Decision Making Patient did get improvement with treatment rendered here which included Toradol 15 mg IM. Patient will be discharged and instructed to follow-up with her dentist in 1 to 2 days if symptoms worsen return to ED. Problem List Items Addressed This Visit None Visit Diagnoses Odontalgia - Primary Relevant Medications ketorolac (Toradol) 10 mg tablet Pain, dental Relevant Medications ketorolac (Toradol) 10 mg tablet DO Tram Armas DO 12/28/22 0117 T [facility] Work Phone: Evaluation note Note Date & Type Note Facility Evaluation note Diagnosis Odontalgia- Primary Unspecified disorder of the teeth and supporting structures Pain, dental documented in this encounter [facility] Work Phone: Reason for referral (narrative) Consultation (Routine) - Pending Review Note Date & Type Note Facility Reason for referral (narrati ve) Specialty Diagnoses / Procedures Referred By Shavonne smith Referred To Contact Family Medicine / Primary Care Procedures CO OFFICE/OUTPATIENT NEW HIGH MDM 60-74 MINUTES Tram Herrera DO [address] [place] [address] Referral ID Status Reason Start Date Expiration Date Visits Requested Visits Authorized [id number] Pending Review Specialty Services Required 12/28/2022 06/26/2023 1 1 [facility] Work Phone: Summary Purpose Family History No Family History Records FoundNo Family History Records FoundNo Family History Records FoundNo Family History Records FoundNo Family History Records FoundNo Family History Records FoundNo Family History Records FoundNo Family History Records Found Advance Directives No Advanced Directives Records FoundNo Advanced Directives Records FoundNo Advanced Directives Records FoundNo Advanced Directives Records FoundNo Advanced Directives Records FoundNo Advanced Directives Records FoundNo Advanced Directives Records FoundNo Advanced Directives Records Found Additional Source Comments INFORMATION SOURCE (unrecogn ized section and content) DATE CREATED AUTHOR 09/17/2017 [facility] DATE CREATED AUTHOR AUTHOR'S ORGANIZ ATION 06/09/2018 [facility] DATE CREATED AUTHOR AUTHOR'S ORGANIZ ATION 02/26/2020 [employer] DATE CREATED AUTHOR AUTHOR'S ORGANIZ ATION [facility] DATE CREATED AUTHOR AUTHOR'S ORGANIZ ATION 12/28/2021 [facility] DATE CREATED AUTHOR AUTHOR'S ORGANIZ ATION 05/15/2022 [facility] DATE CREATED AUTHOR AUTHOR'S ORGANIZ ATION 12/31/2022 [facility] DATE CREATED AUTHOR AUTHOR'S ORGANIZ ATION 12/25/2024 [facility] <item> Privacy Markings (unrecogniz ed section and content) Section Author: Windy Reid PROHIBITION ON REDISCLOSURE OF CONFIDENTIAL INFORMATION This notice accompanies a disclosure of information concerning a client made to you with the consent of such client. Reason for Visit (unrecogniz ed section and content) Reason Comments Dental Pain Patient ambulatory t o ED with c/o left lower dental pain. Patient reports root canal x 3 but continued pain. Taking ibuprofen 800 mg and Tylenol 1000 mg routinely without relief. Currently taking Amoxicillin. Denies fever. Scheduled Active and Recently Administ ered Medications (unrecognized section and content) Medication Order 12/26/2022 12/27/2022 12/28/2022 kstxzopa-emyonkllbj-tsutwlcdus (Cetacaine) spray 1 spray (COMPLETED) 1 spray, Topical, Once, On Sat12/28/22 at 0025, For 1 dose 0037 (Given - Provid er: Cheyenne Loredo RN) ketorolac (Toradol) injection 15 mg (COMPLETED) 15 mg, intramuscular, Once, On Sat12/28/22 at 0025, For 1 dose 0036 (Given - Provid er: Cheyenne Loredo RN) lidocaine (Xylocaine) 2 % mouth solution 1.25 mL (COMPLETED) 1.25 mL, Mouth/Throat, Once, On Sat12/28/22 at 0025, For 1 dose 0025 (Given - Provid er: Cheyenne Loredo MELA) Care Teams (unrecognized sec tion and content) Director Of Compliance Relationship Specialty Start Date End Date João Aldrich Sandip, BEEKEEPER [employer] CLE[employer]ER [address] [facility], [facility] [address] [place] [address] PCP - General 02/25/20 12/27/22 FOR RECORDS PERTAINING TO PATIENTS WHO ARE OR HAVE BEEN ENROLLED IN A CHEMICAL DEPENDENCY/SUBSTANCEABUSE PROGRAM, SOME INFORMATION MAY BE OMITTED. This clinical summary was aggregated from multiple sources. Caution should be exercised in using it in the provision of clinical care. This summary normalizes information from multiple sources, and as a consequence, information in this document may materially change the coding, format and clinical context of patient data. In addition, data may be omitted in some cases. CLINICAL DECISIONS SHOULD BE BASED ON THE PRIMARY CLINICAL RECORDS. [facility]. provides no warranty or guarantee of the accuracy or completeness of information in this document.
[2025-01-08 18:46] LABS: Free T3 3.4 pg/mL (2.18-3.98)
[2025-01-11 16:09] LABS: ANTINUCLEAR ANTIBODIES DIRECT Negative (Negative); Anti-dsDNA Ab 1 IU/mL (0-9)
== END | disposition home or self-care (01) ==
LOC: MTLAB 16:27
PROVIDERS: PCP Specialist/Technologist Athletic Trainer; Referring Provider Physician Assistant; Visit Provider Physician Assistant
DX: L63.8 Other alopecia areata (principal)
CPT/HCPCS: 36415; 84439; 84443; 84481; 86038; 86225; 86376